=== PATIENT | male | born 1930 | race Caucasian/White ===

== ENCOUNTER → 2017-10-08 18:15 | Outpatient (CLI) | payer MEDICARE ==
[2017-10-08 19:14] LABS: BASOPHILS 0.1 % (0-2); EOSINOPHILS 0.4 % (0-7); HEMATOCRIT 35.5 % (42.0-54.0); HEMOGLOBIN 11.5 g/dL (13.5-17.5); LYMPHOCYTES 19.9 % (15-50); MCHC 32.4 g/dL (31.0-37.0); MCV 83.3 fL (80.0-100.0); MONOCYTES 7.3 % (2-11); NEUTROPHILS 72.3 % (40-80); PLATELET COUNT 297 10x3/uL (130-400); RBC 4.26 10x6/uL (4.20-6.10); RDW 17.3 % (11.5-14.5); WBC 7.1 10x3/uL (4.8-10.8)
[2017-10-08 19:35] LABS: ALBUMIN 2.7 g/dL (3.4-5.0); ALKALINE PHOSPHATASE 73 U/L (46-116); ALT (SGPT) 29 U/L (10-68); BILIRUBIN - TOTAL 0.58 mg/dL (0.2-1.3); CALC OSMOLALITY 271 mosm/kg (275-300); CARBON DIOXIDE 31.4 mmol/L (21.0-32.0); CHLORIDE - SERUM 89 mmol/L (98-107); CREATININE - SERUM 0.8 mg/dL (0.6-1.3); GLUCOSE 163 mg/dL (74-106); POTASSIUM - SERUM 3.7 mmol/L (3.5-5.1); PRO BNP 228 pg/mL (0-450); PROTEIN - SERUM 7.6 g/dL (6.4-8.2); SODIUM 129 mmol/L (136-145); UREA NITROGEN 39 mg/dL (7-18); eGFR NON AFRICAN AMERICAN > 90 mL/min (90-120)
== END | disposition home or self-care (01) ==
LOC: D.LABREF 18:15
PROVIDERS: Family Medicine
DX: I50.9 Heart failure, unspecified (principal)

== ENCOUNTER 2017-11-22 14:51 | Emergency (ER) | payer MEDICARE ==
[2017-11-22 16:19] LABS: BASOPHILS 0.2 % (0-2); EOSINOPHILS 0.4 % (0-7); HEMATOCRIT 31.8 % (42.0-54.0); HEMOGLOBIN 10.2 g/dL (13.5-17.5); MCH 27.6 pg (26.0-34.0); MCHC 32.1 g/dL (31.0-37.0); MCV 86.2 fL (80.0-100.0); MEAN PLATELET VOLUME 7.9 fL (7.4-10.4); MONOCYTES 6.5 % (2-11); NEUTROPHILS 69.9 % (40-80); PLATELET COUNT 254 10x3/uL (130-400); RBC 3.69 10x6/uL (4.20-6.10); RDW 16.4 % (11.5-14.5); WBC 4.7 10x3/uL (4.8-10.8)
[2017-11-22 16:34] LABS: ALBUMIN 2.1 g/dL (3.4-5.0); ALKALINE PHOSPHATASE 76 U/L (46-116); ALT (SGPT) 25 U/L (10-68); BILIRUBIN - TOTAL 0.46 mg/dL (0.2-1.3); CALC OSMOLALITY 265 mosm/kg (275-300); CALCIUM 8.8 mg/dL (8.5-10.1); CARBON DIOXIDE 27.1 mmol/L (21.0-32.0); CHLORIDE - SERUM 96 mmol/L (98-107); CREATININE - SERUM 0.6 mg/dL (0.6-1.3); POTASSIUM - SERUM 3.6 mmol/L (3.5-5.1); PROTEIN - SERUM 6.6 g/dL (6.4-8.2); SODIUM 131 mmol/L (136-145); UREA NITROGEN 20 mg/dL (7-18); eGFR NON AFRICAN AMERICAN > 90 mL/min (90-120)
[2017-11-22 16:35] LABS: GLUCOSE 93 mg/dL (74-106)
[2017-11-22 17:34] LABS: APPEARANCE CLEAR (CLEAR); BILIRUBIN NEGATIVE (NEGATIVE); COLOR YELLOW (YELLOW); GLUCOSE NEGATIVE (NEGATIVE); KETONE NEGATIVE (NEGATIVE); NITRITE NEGATIVE (NEGATIVE); PROTEIN NEGATIVE (NEGATIVE); UROBILINOGEN NORMAL (NORMAL)
[2018-01-04 11:29] VITALS: BMI 15.8
== END 2017-11-22 20:45 | disposition home or self-care (01) ==
LOC: D.ER 14:51
PROVIDERS: Nurse Practitioner Family
DX: S31.000A Unspecified open wound of lower back and pelvis without penetration into retroperitoneum, initial encounter (principal); X58.XXXA Exposure to other specified factors, initial encounter; Y93.89 Activity, other specified; Y92.89 Other specified places as the place of occurrence of the external cause; L03.319 Cellulitis of trunk, unspecified

== ENCOUNTER 2017-12-06 15:14 | Inpatient (IN) | payer MEDICARE ==
[~2017-12-06] VITALS: Ht 177.8 cm; Wt 54.9 kg
[2017-12-06 16:02] LABS: BASOPHILS 0.1 % (0-2); EOSINOPHILS 0.4 % (0-7); HEMATOCRIT 35.4 % (42.0-54.0); HEMOGLOBIN 11.7 g/dL (13.5-17.5); IMMATURE GRANULOCYTES 0.1 % (0-5); LYMPHOCYTES 20.8 % (15-50); MCH 28.7 pg (26.0-34.0); MCHC 33.1 g/dL (31.0-37.0); MEAN PLATELET VOLUME 8.2 fL (7.4-10.4); MONOCYTES 4.4 % (2-11); NEUTROPHILS 74.2 % (40-80); RBC 4.07 10x6/uL (4.20-6.10); RDW 16.9 % (11.5-14.5)
[2017-12-06 16:10] LABS: PLATELET COUNT 348 10x3/uL (130-400)
[2017-12-06 16:16] LABS: ALBUMIN 2.5 g/dL (3.4-5.0); ALKALINE PHOSPHATASE 73 U/L (46-116); ALT (SGPT) 36 U/L (10-68); BILIRUBIN - TOTAL 0.52 mg/dL (0.2-1.3); CALC OSMOLALITY 274 mosm/kg (275-300); CALCIUM 8.8 mg/dL (8.5-10.1); CARBON DIOXIDE 27.2 mmol/L (21.0-32.0); CHLORIDE - SERUM 98 mmol/L (98-107); CREATININE - SERUM 0.7 mg/dL (0.6-1.3); GLUCOSE 98 mg/dL (74-106); PROTEIN - SERUM 7.2 g/dL (6.4-8.2); SODIUM 134 mmol/L (136-145); UREA NITROGEN 33 mg/dL (7-18); eGFR NON AFRICAN AMERICAN > 90 mL/min (90-120)
[2017-12-06 16:24] LABS: CHOL - HDL RATIO 2.4 ratio (2.3-4.9); LDL-HDL RATIO 1.3 ratio (1.5-3.5); T4 THYROXIN - FREE 0.88 ng/dL (0.76-1.46); T4 THYROXINE 4.9 ug/dL (4.7-13.3); THYROID STIMULATING HORMONE 2.13 uIU/mL (0.36-3.74)
[2017-12-06 16:41] LABS: APPEARANCE CLEAR (CLEAR); BILIRUBIN NEGATIVE (NEGATIVE); COLOR YELLOW (YELLOW); GLUCOSE NEGATIVE (NEGATIVE); INR 1.07 (0.85-1.17); KETONE NEGATIVE (NEGATIVE); NITRITE POSITIVE (NEGATIVE); PROTEIN NEGATIVE (NEGATIVE); PROTIME 13.5 SECONDS (11.6-15.0); UROBILINOGEN NORMAL (NORMAL)
[2017-12-06 16:43] LABS: BACTERIA MODERATE /hpf (NONE SEEN); RED CELLS - URINE OCC /hpf (0-5); WHITE CELLS - URINE 0-5 /hpf (0-5)
[2017-12-06 16:51] LABS: CREATINE KINASE 28 UL (21-232); MAGNESIUM - SERUM 1.6 mg/dL (1.8-2.4); PRO BNP 392 pg/mL (0-450)
[2017-12-06 16:53] LABS: TROPONIN-I < 0.017 ng/mL (0.000-0.060)
[2017-12-06 21:00] VITALS: BP 90/58
[2017-12-06 22:57] VITALS: BMI 17.3
[2017-12-06] MEDS ORDERED: ALDACTONE50 MG PO (23:14)
[2017-12-06] MEDS ORDERED: BAYER CHEWABLE81 MG PO (23:15)
[2017-12-06] MEDS ORDERED: METOLAZONE5 MG PO (23:15)
[2017-12-07 00:24] VITALS: BP 122/57
[2017-12-07 05:31] VITALS: BP 103/56
[2017-12-07 06:21] LABS: BASOPHILS 0.2 % (0-2); EOSINOPHILS 1.1 % (0-7); HEMATOCRIT 29.9 % (42.0-54.0); HEMOGLOBIN 9.6 g/dL (13.5-17.5); IMMATURE GRANULOCYTES 0.3 % (0-5); LYMPHOCYTES 22.5 % (15-50); MCH 27.9 pg (26.0-34.0); MCHC 32.1 g/dL (31.0-37.0); MCV 86.9 fL (80.0-100.0); MEAN PLATELET VOLUME 7.9 fL (7.4-10.4); MONOCYTES 5.6 % (2-11); NEUTROPHILS 70.3 % (40-80); RBC 3.44 10x6/uL (4.20-6.10); RDW 17.1 % (11.5-14.5); WBC 6.1 10x3/uL (4.8-10.8)
[2017-12-07 06:25] LABS: PLATELET COUNT 277 10x3/uL (130-400)
[2017-12-07 06:32] LABS: CALC OSMOLALITY 273 mosm/kg (275-300); CALCIUM 7.9 mg/dL (8.5-10.1); CARBON DIOXIDE 25.8 mmol/L (21.0-32.0); CHLORIDE - SERUM 100 mmol/L (98-107); GLUCOSE 82 mg/dL (74-106); POTASSIUM - SERUM 4.1 mmol/L (3.5-5.1); SODIUM 135 mmol/L (136-145); UREA NITROGEN 27 mg/dL (7-18)
[2017-12-07 06:33] LABS: CREATININE - SERUM 0.5 mg/dL (0.6-1.3); eGFR NON AFRICAN AMERICAN > 90 mL/min (90-120)
[2017-12-07 08:00] VITALS: BP 92/54
[2017-12-07 08:28] VITALS: BMI 17.3
[2017-12-07 11:48] VITALS: BP 78/45
[2017-12-07 13:13] VITALS: Ht 177.8 cm; Wt 54.9 kg
[2017-12-07 13:21] LABS: % SATURATION 25 % (15-55); IRON 63 ug/dl (35-150); TOTAL IRON BIND CAPACITY 243 ug/dl (260-445); UNSAT IRON BIND CAPACITY 180 ug/dl (150-375)
[2017-12-07 13:39] LABS: MAGNESIUM - SERUM 1.6 mg/dL (1.8-2.4)
[2017-12-07 15:11] VITALS: BP 78/50
[2017-12-08] VITALS: BP 103/70
[2017-12-08 05:18] VITALS: BP 110/60
[2017-12-08 06:22] LABS: BASOPHILS 0.2 % (0-2); EOSINOPHILS 0.9 % (0-7); HEMOGLOBIN 9.6 g/dL (13.5-17.5); IMMATURE GRANULOCYTES 0.2 % (0-5); LYMPHOCYTES 29.2 % (15-50); MCH 28.2 pg (26.0-34.0); MONOCYTES 6.1 % (2-11); NEUTROPHILS 63.4 % (40-80); PLATELET COUNT 285 10x3/uL (130-400); RBC 3.41 10x6/uL (4.20-6.10); RDW 17.3 % (11.5-14.5); WBC 5.8 10x3/uL (4.8-10.8)
[2017-12-08 06:34] LABS: CALC OSMOLALITY 268 mosm/kg (275-300); CALCIUM 8.1 mg/dL (8.5-10.1); CARBON DIOXIDE 25.6 mmol/L (21.0-32.0); CHLORIDE - SERUM 102 mmol/L (98-107); CREATININE - SERUM 0.6 mg/dL (0.6-1.3); GLUCOSE 82 mg/dL (74-106); POTASSIUM - SERUM 3.5 mmol/L (3.5-5.1); SODIUM 134 mmol/L (136-145); eGFR NON AFRICAN AMERICAN > 90 mL/min (90-120)
[2017-12-08 06:44] LABS: UREA NITROGEN 18 mg/dL (7-18)
[2017-12-08 09:17] LABS: FOLATE (FOLIC ACID) - SERUM 12.7 ng/mL (>3.0)
[2017-12-08 10:52] VITALS: BP 97/61
[2017-12-08 16:25] VITALS: BP 95/52
[2017-12-08 20:00] VITALS: BP 92/58
[2017-12-09] VITALS: BP 96/56
[2017-12-09 04:00] VITALS: BP 103/65
[2017-12-09 05:46] LABS: BASOPHILS 0.2 % (0-2); EOSINOPHILS 0.5 % (0-7); HEMATOCRIT 28.1 % (42.0-54.0); IMMATURE GRANULOCYTES 0.3 % (0-5); LYMPHOCYTES 23.3 % (15-50); MCH 28.3 pg (26.0-34.0); MCV 88.4 fL (80.0-100.0); MEAN PLATELET VOLUME 8.1 fL (7.4-10.4); NEUTROPHILS 69.7 % (40-80); PLATELET COUNT 256 10x3/uL (130-400); RBC 3.18 10x6/uL (4.20-6.10); RDW 17.3 % (11.5-14.5); WBC 5.8 10x3/uL (4.8-10.8)
[2017-12-09 06:23] LABS: CALC OSMOLALITY 281 mosm/kg (275-300); CALCIUM 7.7 mg/dL (8.5-10.1); CARBON DIOXIDE 27.1 mmol/L (21.0-32.0); CHLORIDE - SERUM 105 mmol/L (98-107); CREATININE - SERUM 0.6 mg/dL (0.6-1.3); GLUCOSE 91 mg/dL (74-106); POTASSIUM - SERUM 3.4 mmol/L (3.5-5.1); SODIUM 139 mmol/L (136-145); eGFR NON AFRICAN AMERICAN > 90 mL/min (90-120)
[2017-12-09 06:24] LABS: UREA NITROGEN 23 mg/dL (7-18)
[2017-12-09 08:34] VITALS: BP 138/65
[2017-12-09 11:52] VITALS: BP 92/51
[2017-12-09 16:17] VITALS: BP 118/65
[2017-12-09 20:00] VITALS: BP 92/52
[2017-12-10] VITALS: BP 98/50
[2017-12-10 03:58] LABS: BASOPHILS 0.2 % (0-2); EOSINOPHILS 1.1 % (0-7); HEMATOCRIT 28.3 % (42.0-54.0); IMMATURE GRANULOCYTES 0.5 % (0-5); LYMPHOCYTES 18.3 % (15-50); MCH 28.5 pg (26.0-34.0); MCHC 31.8 g/dL (31.0-37.0); MCV 89.6 fL (80.0-100.0); MEAN PLATELET VOLUME 7.8 fL (7.4-10.4); MONOCYTES 6.6 % (2-11); NEUTROPHILS 73.3 % (40-80); PLATELET COUNT 240 10x3/uL (130-400); RBC 3.16 10x6/uL (4.20-6.10); RDW 17.6 % (11.5-14.5); WBC 6.7 10x3/uL (4.8-10.8)
[2017-12-10 04:00] VITALS: BP 96/60
[2017-12-10 04:25] LABS: CALC OSMOLALITY 271 mosm/kg (275-300); CALCIUM 7.9 mg/dL (8.5-10.1); CARBON DIOXIDE 27.1 mmol/L (21.0-32.0); CHLORIDE - SERUM 102 mmol/L (98-107); CREATININE - SERUM 0.5 mg/dL (0.6-1.3); GLUCOSE 88 mg/dL (74-106); SODIUM 135 mmol/L (136-145); UREA NITROGEN 20 mg/dL (7-18); eGFR NON AFRICAN AMERICAN > 90 mL/min (90-120)
[2017-12-10 04:26] LABS: POTASSIUM - SERUM 4.1 mmol/L (3.5-5.1)
[2017-12-10 11:33] VITALS: BP 103/60
[2017-12-10 16:36] VITALS: BP 94/51
[2017-12-10 21:05] VITALS: BP 90/56
[2017-12-11 01:47] VITALS: BP 98/59
[2017-12-11 05:20] VITALS: BP 114/63
[2017-12-11 05:28] LABS: BASOPHILS 0.3 % (0-2); EOSINOPHILS 1.6 % (0-7); HEMATOCRIT 27.4 % (42.0-54.0); HEMOGLOBIN 8.6 g/dL (13.5-17.5); IMMATURE GRANULOCYTES 0.2 % (0-5); LYMPHOCYTES 20.9 % (15-50); MCH 28.1 pg (26.0-34.0); MCHC 31.4 g/dL (31.0-37.0); MCV 89.5 fL (80.0-100.0); MEAN PLATELET VOLUME 8.1 fL (7.4-10.4); MONOCYTES 6.8 % (2-11); NEUTROPHILS 70.2 % (40-80); PLATELET COUNT 272 10x3/uL (130-400); RBC 3.06 10x6/uL (4.20-6.10); RDW 17.4 % (11.5-14.5); WBC 6.3 10x3/uL (4.8-10.8)
[2017-12-11 05:42] LABS: CALC OSMOLALITY 273 mosm/kg (275-300); CALCIUM 7.5 mg/dL (8.5-10.1); CARBON DIOXIDE 28.4 mmol/L (21.0-32.0); CHLORIDE - SERUM 103 mmol/L (98-107); CREATININE - SERUM 0.5 mg/dL (0.6-1.3); GLUCOSE 84 mg/dL (74-106); POTASSIUM - SERUM 3.7 mmol/L (3.5-5.1); SODIUM 136 mmol/L (136-145); UREA NITROGEN 21 mg/dL (7-18); eGFR NON AFRICAN AMERICAN > 90 mL/min (90-120)
[2017-12-11 07:58] VITALS: BP 100/58
[2017-12-11 11:31] VITALS: BP 89/55
[2017-12-11 15:39] VITALS: BP 98/56
[2017-12-11 20:00] VITALS: BP 105/63
[2017-12-12] VITALS (7 sets, daily range): BP systolic 89–115; BP diastolic 40–62
[2017-12-12 05:28] LABS: BASOPHILS 0.2 % (0-2); EOSINOPHILS 1.9 % (0-7); HEMATOCRIT 27.3 % (42.0-54.0); HEMOGLOBIN 8.6 g/dL (13.5-17.5); IMMATURE GRANULOCYTES 0.3 % (0-5); LYMPHOCYTES 20.4 % (15-50); MCH 28.3 pg (26.0-34.0); MCHC 31.5 g/dL (31.0-37.0); MCV 89.8 fL (80.0-100.0); NEUTROPHILS 70.2 % (40-80); PLATELET COUNT 276 10x3/uL (130-400); RBC 3.04 10x6/uL (4.20-6.10); RDW 17.7 % (11.5-14.5); WBC 5.9 10x3/uL (4.8-10.8)
[2017-12-12 06:01] LABS: CALC OSMOLALITY 275 mosm/kg (275-300); CALCIUM 7.4 mg/dL (8.5-10.1); CHLORIDE - SERUM 103 mmol/L (98-107); CREATININE - SERUM 0.5 mg/dL (0.6-1.3); GLUCOSE 83 mg/dL (74-106); POTASSIUM - SERUM 3.7 mmol/L (3.5-5.1); SODIUM 137 mmol/L (136-145); UREA NITROGEN 22 mg/dL (7-18); eGFR NON AFRICAN AMERICAN > 90 mL/min (90-120)
[2017-12-13 04:00] VITALS: BP 118/68
[2017-12-13 06:44] LABS: BASOPHILS 0.1 % (0-2); EOSINOPHILS 1.3 % (0-7); HEMATOCRIT 28.8 % (42.0-54.0); HEMOGLOBIN 9.2 g/dL (13.5-17.5); IMMATURE GRANULOCYTES 0.3 % (0-5); LYMPHOCYTES 16.1 % (15-50); MCH 28.5 pg (26.0-34.0); MCHC 31.9 g/dL (31.0-37.0); MCV 89.2 fL (80.0-100.0); MEAN PLATELET VOLUME 7.5 fL (7.4-10.4); MONOCYTES 7.2 % (2-11); PLATELET COUNT 245 10x3/uL (130-400); RBC 3.23 10x6/uL (4.20-6.10); RDW 17.1 % (11.5-14.5)
[2017-12-13 06:46] LABS: WBC 7.6 10x3/uL (4.8-10.8)
[2017-12-13 06:55] LABS: CALC OSMOLALITY 273 mosm/kg (275-300); CALCIUM 7.5 mg/dL (8.5-10.1); CHLORIDE - SERUM 103 mmol/L (98-107); CREATININE - SERUM 0.5 mg/dL (0.6-1.3); GLUCOSE 85 mg/dL (74-106); POTASSIUM - SERUM 3.9 mmol/L (3.5-5.1); SODIUM 136 mmol/L (136-145); UREA NITROGEN 21 mg/dL (7-18); eGFR NON AFRICAN AMERICAN > 90 mL/min (90-120)
[2017-12-13 08:35] VITALS: BP 113/67
[2017-12-13 11:40] VITALS: BP 124/66
[2017-12-13] MEDS ORDERED: FLOMAX0.4 MG PO (12:51)
[2017-12-13] MEDS ORDERED: Levaquin PO (12:52)
== END 2017-12-13 15:10 | DRG 698 ==
LOC: D.ER 15:14 → D.EDHOLD 19:37 → D.M2 19:37
PROVIDERS: Family Medicine; Internal Medicine Nephrology; Nurse Practitioner Family
PROC: 0T9B70Z Drainage of Bladder with Drainage Device, Via Natural or Artificial Opening (ICD-10-PCS; principal; 2017-12-06)
DX: N32.0 Bladder-neck obstruction (principal); E43 Unspecified severe protein-calorie malnutrition; L89.154 Pressure ulcer of sacral region, stage 4; N39.0 Urinary tract infection, site not specified; N17.9 Acute kidney failure, unspecified; Z68.1 Body mass index [BMI] 19.9 or less, adult; N13.30 Unspecified hydronephrosis; I95.9 Hypotension, unspecified; I11.0 Hypertensive heart disease with heart failure; I50.9 Heart failure, unspecified; E78.5 Hyperlipidemia, unspecified; D64.9 Anemia, unspecified; J44.9 Chronic obstructive pulmonary disease, unspecified; E83.42 Hypomagnesemia; K57.90 Diverticulosis of intestine, part unspecified, without perforation or abscess without bleeding; K44.9 Diaphragmatic hernia without obstruction or gangrene; K59.00 Constipation, unspecified; B96.20 Unspecified Escherichia coli [E. coli] as the cause of diseases classified elsewhere

== ENCOUNTER 2018-01-02 17:02 | Inpatient (IN) | payer MEDICARE ==
[~2018-01-02] VITALS: Ht 177.8 cm; Wt 50.8 kg
[~2018-01-02 17:02] MED LIST: ALDACTONE50 MG PO; BAYER CHEWABLE81 MG PO; FLOMAX0.4 MG PO; Levaquin PO; METOLAZONE5 MG PO
[2018-01-02 17:37] LABS: BASOPHILS 0.1 % (0-2); EOSINOPHILS 0 % (0-7); HEMATOCRIT 34.4 % (42.0-54.0); HEMOGLOBIN 11.2 g/dL (13.5-17.5); IMMATURE GRANULOCYTES 0.2 % (0-5); LYMPHOCYTES 5.8 % (15-50); MCH 28.7 pg (26.0-34.0); MCHC 32.6 g/dL (31.0-37.0); MCV 88.2 fL (80.0-100.0); MEAN PLATELET VOLUME 8.1 fL (7.4-10.4); MONOCYTES 2.1 % (2-11); NEUTROPHILS 91.8 % (40-80); RDW 15.6 % (11.5-14.5); WBC 15.5 10x3/uL (4.8-10.8)
[2018-01-02 17:38] LABS: PLATELET COUNT 315 10x3/uL (130-400)
[2018-01-02 17:50] LABS: ALBUMIN 1.8 g/dL (3.4-5.0); ALKALINE PHOSPHATASE 157 U/L (46-116); ALT (SGPT) 49 U/L (10-68); CALC OSMOLALITY 282 mosm/kg (275-300); CALCIUM 9.5 mg/dL (8.5-10.1); CARBON DIOXIDE 27.9 mmol/L (21.0-32.0); CHLORIDE - SERUM 96 mmol/L (98-107); GLUCOSE 116 mg/dL (74-106); POTASSIUM - SERUM 3.7 mmol/L (3.5-5.1); PROTEIN - SERUM 7.5 g/dL (6.4-8.2); SODIUM 132 mmol/L (136-145); UREA NITROGEN 60 mg/dL (7-18); eGFR NON AFRICAN AMERICAN 75 mL/min (90-120)
[2018-01-02 18:02] LABS: CKMB 0.9 U/L (0.0-3.6); CREATINE KINASE 121 UL (21-232); PRO BNP 2076 pg/mL (0-450); TROPONIN-I 0.022 ng/mL (0.000-0.060)
[2018-01-02 19:53] LABS: APPEARANCE HAZY (CLEAR); BILIRUBIN NEGATIVE (NEGATIVE); COLOR YELLOW (YELLOW); GLUCOSE NEGATIVE (NEGATIVE); KETONE NEGATIVE (NEGATIVE); NITRITE NEGATIVE (NEGATIVE); PROTEIN TRACE mg/dL (NEGATIVE); UROBILINOGEN NORMAL (NORMAL)
[2018-01-02 20:01] LABS: BACTERIA MANY /hpf (NONE SEEN); CALCIUM OXALATE CRYSTALS OCC /hpf (NONE SEEN); EPITHELIAL CELLS 0-5 /hpf (0-5); HYALINE CAST OCC /lpf (NONE SEEN); RED CELLS - URINE >50 /hpf (0-5)
[2018-01-03] VITALS (63 sets, daily range): BP systolic 64–100; BP diastolic 34–86; Ht 177.8 cm; Wt 50.8 kg
[2018-01-03] MEDS ORDERED: ORAZINC220 ( 50 ) PO (00:26)
[2018-01-03] MEDS ORDERED: PROMOD LIQUID P30 M1 PO (00:27)
[2018-01-03] MEDS ORDERED: VIC-FORTE CAPSUL1 MG PO (00:28)
[2018-01-03] MEDS ORDERED: OYSCO 500+D TAB1 TAB PO (00:29)
[2018-01-03] MEDS ORDERED: ACEROLA C500 MG PO (00:31)
== END 2018-01-03 19:10 | disposition hospice, inpatient (51) | DRG 871 ==
LOC: D.ER 17:02 → D.ICU 18:35 → D.EDHOLD 18:35 → D.ICU 23:51
PROVIDERS: Emergency Medicine
DX: A41.9 Sepsis, unspecified organism (principal); R40.2223 Coma scale, best verbal response, incomprehensible words, at hospital admission; E43 Unspecified severe protein-calorie malnutrition; E87.1 Hypo-osmolality and hyponatremia; Z68.1 Body mass index [BMI] 19.9 or less, adult; Z66 Do not resuscitate; R41.82 Altered mental status, unspecified; I95.9 Hypotension, unspecified; D64.9 Anemia, unspecified; R00.0 Tachycardia, unspecified; R50.9 Fever, unspecified; I10 Essential (primary) hypertension; R40.2353 Coma scale, best motor response, localizes pain, at hospital admission; R40.2143 Coma scale, eyes open, spontaneous, at hospital admission

== ENCOUNTER 2018-01-03 18:49 | Inpatient (IN) | payer OTHER ==
[~2018-01-03] VITALS: Ht 177.8 cm; Wt 49.5 kg
[~2018-01-03 18:49] MED LIST changes: +ACEROLA C500 MG PO; +ORAZINC220 ( 50 ) PO; +OYSCO 500+D TAB1 TAB PO; +PROMOD LIQUID P30 M1 PO; +VIC-FORTE CAPSUL1 MG PO
[2018-01-03 19:00] VITALS: BP 82/59
[2018-01-03 20:14] VITALS: BP 87/61; BMI 15.8
[2018-01-03 23:00] VITALS: BP 89/61
[2018-01-03 23:23] VITALS: BP 87/61
[2018-01-04 03:00] VITALS: BP 84/37
[2018-01-04 07:00] VITALS: BP 87/61
[2018-01-04 11:29] VITALS: Ht 177.8 cm; Wt 49.5 kg
[2018-01-04 16:47] VITALS: BP 78/54
[2018-01-04 20:38] VITALS: BP 85/50
[2018-01-05 09:16] VITALS: BP 87/56
[2018-01-05 21:25] VITALS: BP 87/52
[2018-01-06 08:08] VITALS: BP 73/51
[2018-01-06 20:00] VITALS: BP 60/36
== END 2018-01-07 06:05 | DRG 951 ==
LOC: D.ICU 18:49 → D.SDCHOLD 18:49 → D.ICU 19:12 → D.M2 01-04 13:11
DX: Z51.5 Encounter for palliative care (principal)